=== PATIENT | male | born 1980 | race Caucasian/White ===

== ENCOUNTER 2019-05-15 12:06 | Emergency (ER) | payer OTHER ==
[2019-05-15 12:33] VITALS: BP 126/82
--- NOTE | 2019-05-15 13:35 | ER Document Report ---
HPI - HPI Time Seen by Provider: 05/15/19 13:13 Pain Level: 2 Notes: 39-year-old male presents the ED with complaints of a rash on his arms and legs, states he noticed it 4 days ago, reports rash is itchy, tried [id number] hydrocortisone cream with relief. Vaccinations are up-to-date. Patient staying in a new place, unsure if this is causing the rash. Denies any new lotions foods or medications. Patient is unsure if he is been exposed to bedbugs. Denies that itching is worse at night denies fevers, chills, chest pain,palpitations, shortness of breath, dyspnea, nausea, vomiting, diarrhea, abdominal pain, hematuria,blurred vision, double vision, loss of vision, speech changes, LH, dizziness, syncope, headaches, wheezing, ST, URI, neck pain, weakness, bowel or bladder dysfunction, saddle anesthesia, numbness or tingling in bilateral upper or lower extremities equally, muscle paralysis, weakness in bilateral upper or lower extremities equally Past Medical History - General Information source: Patient - Social History Smoking Status: Unknown if Ever Smoked Family History: Reviewed & Not Pertinent Vertical Provider Document - CONSTITUTIONAL Agree With Documented VS: Yes Exam Limitations: No Limitations Notes: PHYSICAL EXAMINATION: GENERAL: Well-appearing, well-nourished and in no acute distress. HEAD: Atraumatic, normocephalic. EYES: Pupils equal round and reactive to light, extraocular movements intact, sclera anicteric, conjunctiva are normal. ENT: Nares patent, oropharynx clear without exudates. Moist mucous membranes. NECK: Normal range of motion, supple without lymphadenopathy LUNGS: Breath sounds clear to auscultation bilaterally and equal. No wheezes rales or rhonchi. HEART: Regular rate and rhythm without murmurs ABDOMEN: Soft, nontender, nondistended abdomen. No guarding, no rebound. No masses appreciated. Musculoskeletal: Normal range of motion, no pitting or edema. No cyanosis. NEUROLOGICAL: Cranial nerves grossly intact. Normal speech, normal gait. N ormal sensory, motor exams PSYCH: Normal mood, normal affect. SKIN: Warm, Dry, normal turgor, no rashes or lesions noted. Noted maculopapular rash on lateral aspects of bilateral arms, no rash to torso, no rash to back, noted rash to bilateral lower extremities, no linear pattern. no satellite lesions and no burrowing noted noted. No petechiae. - INFECTION CONTROL TRAVEL OUTSIDE OF THE [place] IN LAST 30 DAYS: No Course - Re-evaluation Re-evalutation: Afebrile vital stable no distress, nursing notes reviewed. Patient given Decadron 8 mg IM, will send home with prednisone 20 mg 3 times daily, Kenalog ointment and Keflex for concern of developing cellulitis. Advised to avoid any new lotions creams or foods, clean bedding, questionable if this is related to bedbug bugs. Advised to wash sheets in hot water to examine mattress. May need to have an operations associate come in. After performing a Medical Screening Examination, I estimate there is LOW risk for OPEN FRACTURE, COMPARTMENT SYNDROME, TENDON RUPTURE, ACUTE NEUROVASCULAR INJURY, or RETAINED FOREIGN BODY, thus I consider the discharge disposition reasonable. Also, there is no evidence or peritonitis, sepsis, or toxicity. I have reevaluated this patient multiple times and no significant life threatening changes are noted. The patient and I have discussed the diagnosis and risks, and we agree with discharging home with close follow-up with the understanding that symptoms and presentations can change. We also discussed returning to the Emergency Department immediately if new or worsening symptoms occur. We have discussed the symptoms which are most concerning (e.g., changing or worsening pain, fever, numbness, weakness, cool or painful digits) that necessitate immediate return. - Vital Signs Vital signs: Temp Pulse Resp BP Pulse Ox 98.5 F 81 16 126/82 H 96 05/15/19 12:32 05/15/19 12:32 05/15/19 12:32 05/15/19 12:32 05/15/19 12:32 Discharge - Discharge Clinical Impression: Dermatitis, Bed bug bite Condition: Stable Disposition: HOME, SELF-CARE Instructions: Contact Dermatitis ([facility]), Topical Steroid Cream or Ointment ([facility]), Corticosteroid Medication ([facility]) Additional Instructions: Use medication as directed, avoid any new soaps detergents or lotions, cleaning bedding. Follow-up with your primary care provider. Return immediately for any new or worsening symptoms. Follow up with primary care provider, call tomorrow to make followup appointment. Prescriptions: Ibuprofen [Ibu] 600 mg PO Q6HP PRN #20 tablet PRN Reason: Cephalexin Monohydrate [Keflex 500 mg Capsule] 500 mg PO BID #20 capsule Prednisone [Deltasone 20 mg Tablet] 3 tab PO DAILY 5 Days #15 tablet Triamcinolone Acetonide [Aristocort 0.025% Cream] 1 applic TP BID #30 gram Referrals: FARZANA BINGHAM MD [[facility]ED STAFF] - Follow up as needed
[2019-05-15] MEDS ORDERED: DEXAMETHASONE SOD PHOS INJ 10 MG/1 ML VIAL IM ONE (13:52)
== END 2019-05-15 14:33 | disposition home or self-care (01) ==
LOC: ER 12:06
DX: L30.9 Dermatitis, unspecified (principal); T14.8XXA Other injury of unspecified body region, initial encounter; W57.XXXA Bitten or stung by nonvenomous insect and other nonvenomous arthropods, initial encounter
CPT/HCPCS: 99282; 96374; J1100